=== PATIENT | female | born 1940 | race African-American/Black ===

== ENCOUNTER 2019-01-23 12:15 | Emergency (ER) | payer MEDICARE, MEDICAID ==
[~2019-01-23] VITALS: Ht 152.4 cm; Wt 59.0 kg
[~2019-01-23 12:15] MED LIST: NKM; UNOBMED
[2019-01-23 13:00] VITALS: BP 149/66
--- NOTE | 2019-01-23 13:00 | NUR ---
ED Nurse Note: Pt AAOx4, vss, with no acute distress. Pt came in due to calluses on bilateral foot.
--- NOTE | 2019-01-23 13:11 | Emergency Room Report ---
History of Present Illness General Chief Complaint: Skin Rash/Abscess Source: Patient (Ansley Reina) Present Illness HPI 78-year-old female presents to the emergency department complaining of progressive callus on the bilateral feet x months. Patient reports she initially saw a acquisition lead who gave her some medication and the callus went away after a month of treatment however she states it did return. Patient denies pain at this time she reports area of erythema about 1 of the thicker lesions on the right foot. Patient reports some tenderness during ambulation. She denies history of immune compromise, vascular disease or diabetes. Pt. denies fevers, chills or swollen tender lymph nodes. Denies lesions/rashes elsewhere on the body. Denies new medications or body washes or creams. Denies swelling of the lips, tongue , throat or airway. Denies wheezing, or shortness of breath. Denies recent travel, recent illness or ill contacts. denies blisters, oral lesions, or sloughing of the skin. (Ansley Reina) Allergies: Coded Allergies: No Known Allergies (Unverified , 06/01/12) Patient History Past Medical History: see triage record Past Surgical History: none Pertinent Family History: none Now: No Reviewed Nursing Documentation: PMH: Agreed; PSxH: Agreed (Ansley Reina) Nursing Documentation-PMH Past Medical History: No Stated History (Ansley Reina) Review of Systems All Other Systems: negative except mentioned in HPI (Ansley Reina) Physical Exam Vital Signs Date Time Temp Pulse Resp B/P (MAP) Pulse Ox O2 Delivery O2 Flow Rate FiO2 01/23/19 12:41 97.5 82 16 149/66 (93) 95 Room Air Sp02 EP Interpretation: reviewed, normal General Appearance: no apparent distress, alert, GCS 15, non-toxic Head: normocephalic, atraumatic Eyes: bilateral eye normal inspection, bilateral eye PERRL ENT: hearing grossly normal, normal voice Neck: full range of motion Respiratory: chest non-tender, lungs clear, normal breath sounds, speaking full sentences Cardiovascular #1: regular rate, rhythm, no edema, normal capillary refill Musculoskeletal: back normal, gait/station normal, normal range of motion, non- tender Neurologic: alert, oriented x3, responsive, motor strength/tone normal, sensory intact, normal gait, speech normal, grossly normal Psychiatric: judgement/insight normal Skin: other - thick scaly/dry/cracking callous to the plantar aspect and heel of the feet bilaterally with a small area of warmth, erythema and ttp on the right lateral foot. Lymphatic: no adenopathy (Ansley Reina) Medical Decision Making PA Attestation Dr. Ghosh Is my supervising Physician whom patient management has been discussed with. (Ansley Reina) Medicare Attestation The history of Toya Arana has been reviewed and management options for her have been examined and discussed by Edgar Ghosh. I have personally examined and interviewed the patient. (Edgar Ghosh MD) Diagnostic Impression: Primary Impression: Callus Additional Impressions: Corns/callosities Cellulitis Qualified Codes: L03.115 - Cellulitis of right lower limb ER Course 78-year-old female presents to the emergency department complaining of progressive callus on the bilateral feet x months. Patient reports she initially saw a acquisition lead who gave her some medication and the callus went away after a month of treatment however she states it did return. Patient denies pain at this time she reports area of erythema about 1 of the thicker lesions on the right foot. Patient reports some tenderness during ambulation. She denies history of immune compromise, vascular disease or diabetes. Pt. denies fevers, chills or swollen tender lymph nodes. Denies lesions/rashes elsewhere on the body. Denies new medications or body washes or creams. Denies swelling of the lips, tongue , throat or airway. Denies wheezing, or shortness of breath. Denies recent travel, recent illness or ill contacts. denies blisters, oral lesions, or sloughing of the skin. Ddx considered but are not limited to callous, cellulitis, scabies, shingles, varicella, dermatitis, urticaria, eczema, tinea, viral exanthem, SJS Vital signs: are WNL, pt. is afebrile H&PE are most consistent with callous bilaterally with suspicion of small area with secondary cellulitis on the right lateral foot. ORDERS: none required at this time, the diagnosis is clinical ED INTERVENTIONS: None required at this time. DISCHARGE: At this time pt. is stable for d/c to home. Will provide printed patient care instructions, and any necessary prescriptions. Care plan and follow up instructions have been discussed with the patient prior to discharge. (Ansley Reina) Last Vital Signs Date Time Temp Pulse Resp B/P (MAP) Pulse Ox O2 Delivery O2 Flow Rate FiO2 01/23/19 12:41 97.5 82 16 149/66 (93) 95 Room Air (Ansley Reina) Disposition: HOME, SELF-CARE Condition: Stable Scripts Cephalexin* (KEFLEX*) 500 Mg Capsule 500 MG ORAL EVERY 12 HOURS, #14 CAP 0 Refills Prov: Ansley Reina 01/23/19 Urea (UREACIN-20) 113.4 Gm Cream..g. 1 APPLIC TP BID, #113 GM Prov: Ansley Reina 01/23/19 Referrals: NOT CHOSEN IPA/,REFERRING (PCP) Patient Instructions: Corns and Calluses Additional Instructions: Take medications as directed. Follow up with a Primary Care Provider for PODIATRY REFERRAL in 3-5 days, even if your symptoms have resolved. --Please review list of primary care clinics, if you do not already have a primary care provider Return sooner to ED if new symptoms occur, or current symptoms become worse. - Please note that this Emergency Department Report was dictated using [employer] tender technology software, occasionally this can lead to erroneous entry secondary to interpretation by the dictation equipment. Ansley Reina Jan 23, 2019 13:11 Edgar Ghosh MD Jan 27, 2019 06:09
[2019-01-23] MEDS ORDERED: CEPHALEXIN500 MG ORAL (13:13)
[2019-01-23] MEDS ORDERED: [UNRECOGNIZED DRUG - CODE] TP (13:13)
[2019-01-23 13:30] VITALS: BP 149/66
--- NOTE | 2019-01-23 13:30 | NUR ---
ED Nurse Note: Pt cleared by health care Provider for discharge. DC instructions/prescription was given and explained to pt and verbalized understanding of teachings. All medical deviecs such as ID band removed. Pt is AAO x4, ambulatory and left with all personal belongings. pt left with family
== END 2019-01-23 13:30 | disposition home or self-care (01) ==
LOC: EMR 12:59
DX: L03.115 Cellulitis of right lower limb (principal); L84 Corns and callosities
CPT/HCPCS: 99282